=== PATIENT | male | born 1945 | race Caucasian/White ===

== ENCOUNTER 2021-01-27 21:55 | Inpatient (IN) | payer OTHER, MEDICARE ==
[~2021-01-27 21:55] MED LIST: Iopamidol-370 76% 500 ML 1 ML ONE
[2021-01-27] MEDS ORDERED: methylPREDNISolone Sod Succ/PF 125 MG/2 ML VIAL ONE (22:08)
[2021-01-27] MEDS ORDERED: Norepinephrine 8 MG/0.9% NS 250 ML ONE (22:08)
[2021-01-27] MEDS ORDERED: Vasopressin 20 UNIT, Admixture Fee 1 EACH in Sodium Chloride 0.9% 50 ML IV SCH (22:30)
[2021-01-27] MEDS ORDERED: Norepinephrine 8 MG/0.9% NS 250 ML IVPB SCH (22:30)
[2021-01-27 22:31] LABS: Actual Bicarbonate (HCO3a) 16.1 mEq/L (22-28); Analyzer IN Cardio ER; Base Excess (BEa) -12.8 mEq/L (-2.0 to +3.0); CO2 Tension 48.7 mmHg (35.0-45.0); Calcium, Ionized (arterial) 1.11 mmol/L (1.12-1.30); Carboxyhemoglobin (COHb) 0.1 gm% (0.0-3.0); Hemoglobin (Hb) 12.6 g/dL (14.0-18.0); O2 Tension (PaO2), arterial 80.6 mmHg (> 70.0); Potassium - ABG Lab 5.15 mmol/L (3.70-5.30)
[2021-01-27 22:37] LABS: pH, Arterial 7.14 (7.35-7.45)
[2021-01-27 22:38] LABS: Puncture Site RFA
[2021-01-27 22:39] LABS: ALV-art Gradient 428.925 mmHg (0-20)
[2021-01-27 22:51] LABS: Bilirubin Negative (Negative); Blood, Urine Negative (Negative); Clarity Clear (Clear); Glucose, Urine (Dipstick) Normal (Negative); Ketone, Urine Negative (Negative); Leukocyte Negative Leu/uL (Negative); Nitrite Negative (Negative); Protein, Urine (Dipstick) 100 mg/dL (Neg-Trace); RBC/HPF 0-3 HPF (0-3); Urobilinogen Normal mg/dL (Less than 2); pH, Urine 6.5 (5.0-9.0)
[2021-01-27 22:52] LABS: Bacteria/HPF None Seen HPF (None Seen); Squamous Epithelial None Seen HPF (0-3); WBC/HPF 0-3 HPF (0-3)
[2021-01-27] MEDS ORDERED: Sodium Bicarb 50 MEQ/50 ML Abboject 8.4% SYRINGE ONE (22:58)
[2021-01-27 22:59] LABS: Hemoglobin 12.7 g/dL (14.0-18.0); Mean Corpuscular HGB CONC 31.4 g/dL (32.0-36.0); Mean Corpuscular Hemoglobin 31.1 pg (27.0-31.0); Mean Corpuscular Volume 99.1 fL (78.0-98.0); Mean Platelet Volume 7.2 fL (7.4-10.4); Platelet Count 209 thou/uL (130-400); RBC Distribution Width 12.8 % (11.5-14.5); Red Blood Cell (RBC) Count 4.06 mill/uL (4.70-6.10); White Blood Cell (WBC) Count 27.1 thou/uL (4.8-10.8)
[2021-01-27 23:14] LABS: Band 10 % (5-11); Lymphocytes 18 % (21-51); MDiff Complete? YES; Monocytes 2 % (0-10); Myelocyte 1 % (0-0); Neutrophil 69 % (42-75)
[2021-01-27 23:15] LABS: ALT (SGPT) 181 U/L (8-55); AST (SGOT) 189 U/L (5-34); Albumin 3.3 g/dL (3.4-4.8); Alkaline Phosphatase 79 U/L (40-110); Anion Gap 17 mmol/L (10-20); BUN (Urea Nitrogen) 23 mg/dL (8.4-25.7); Bilirubin, Total 0.7 mg/dL (0.2-1.2); Calc. Creatinine Clearance 0 mL/min (70-130); Calcium 7.9 mg/dL (7.8-10.44); Carbon Dioxide 20 mmol/L (23-31); Chloride 110 mmol/L (98-107); Globulin 2.4 g/dL (2.4-3.5); Glucose 138 mg/dL (83-110); Potassium 4.9 mmol/L (3.5-5.1); Protein, Total 5.7 g/dL (5.8-8.1); Sodium 142 mmol/L (136-145)
[2021-01-27] MEDS ORDERED: Vancomycin 1 GM/200 ML BAG ONE (23:36)
[2021-01-27] MEDS ORDERED: Fentanyl 100 MCG/2 ML VIAL ONE ×2 (23:46)
[2021-01-27] MEDS ORDERED: Midazolam HCl 5 mg/5 ml Vial ONE (23:46)
[2021-01-27 23:54] LABS: CKMB 10.4 ng/mL (0-6.6)
[2021-01-28] MEDS ORDERED: Mannitol 12.5 GM/50 ML ONE
[2021-01-28] MEDS ORDERED: ePHEDrine Sulfate 50 MG/10 ML VIAL ONE (00:15)
[2021-01-28] MEDS ORDERED: Calcium Chloride 1 GM/10 ML Abboject SYRINGE ONE (00:15)
[2021-01-28] MEDS ORDERED: Rocuronium Bromide 10 MG/ML (10ML VIAL) ONE (00:15)
[2021-01-28] MEDS ORDERED: PROPOFOL 200 MG/20 ML VIAL ONE (00:15)
[2021-01-28] MEDS ORDERED: PHENYLEPHRINE-NS 100 MCG/ML 10 ML SYRINGE ONE ×2 (00:15→01:51)
[2021-01-28] MEDS ORDERED: Heparin 5,000 UNITS/ML VIAL ONE (00:16)
[2021-01-28] MEDS ORDERED: Heparin 10,000 UNITS/ 10 ML VIAL ONE (00:16)
[2021-01-28] MEDS ORDERED: Norepinephrine 4 MG/4 ML VIAL ONE (00:16)
[2021-01-28] MEDS ORDERED: Albumin 5% 500 ML ONE (01:06)
[2021-01-28] MEDS ORDERED: Ondansetron PF 4 MG/2 ML Vial IVP PRN (03:33)
[2021-01-28] MEDS ORDERED: Insulin Regular 300 UNITS/3 ML VIAL SC PRN (03:33)
[2021-01-28] MEDS ORDERED: Fentanyl CADD 100 ML ONE ×2 (03:47→21:18)
[2021-01-28] MEDS ORDERED: Vecuronium 10 MG VIAL ONE (03:53)
[2021-01-28] MEDS ORDERED: Propofol 1,000 MG/100 ML VIAL IV ONE (04:08)
[2021-01-28] MEDS: Sodium Chloride 0.9% 1,000 ML IV SCH ×4 (04:10→23:53)
[2021-01-28] MEDS ORDERED: Sodium Bicarb 50 MEQ/50 ML Abboject 8.4% SYRINGE ONE (04:18)
[2021-01-28 04:20] LABS: Actual Bicarbonate (HCO3a) 15.7 mEq/L (22-28); CO2 Tension 31.4 mmHg (35.0-45.0); Calcium, Ionized (arterial) 1.06 mmol/L (1.12-1.30); Carboxyhemoglobin (COHb) 0.7 gm% (0.0-3.0); Hemoglobin (Hb) 16.3 g/dL (14.0-18.0); Potassium - ABG Lab 5.49 mmol/L (3.70-5.30); pH, Arterial 7.32 (7.35-7.45)
[2021-01-28 04:21] LABS: Puncture Site Arterial Line
[2021-01-28] MEDS ORDERED: Nitroglycerin 50 MG/250 ML BOT 250 ML ONE (04:27)
[2021-01-28 04:29] LABS: INR-International Normal Ratio 1.6; PTT 48.8 sec (22.9-36.1); Prothrombin Time 19.8 sec (12.0-14.7)
[2021-01-28 04:35] LABS: Anion Gap 17 mmol/L (10-20); BUN (Urea Nitrogen) 23 mg/dL (8.4-25.7); Calc. Creatinine Clearance 58 mL/min (70-130); Calcium 7.8 mg/dL (7.8-10.44); Carbon Dioxide 15 mmol/L (23-31); Chloride 115 mmol/L (98-107); Glucose 116 mg/dL (83-110); Potassium 5.7 mmol/L (3.5-5.1); Sodium 141 mmol/L (136-145)
[2021-01-28 04:41] LABS: Lactic Acid 4.7 mmol/L (0.5-2.2)
[2021-01-28] MEDS ORDERED: Morphine 4 MG/ML VIAL SLOW IVP PRN (04:47)
[2021-01-28] MEDS ORDERED: Propofol BOLUS 1,000 MG/100 ML VIAL IV PRN (05:00)
[2021-01-28] MEDS ORDERED: Morphine 2 MG/ML VIAL SLOW IVP PRN (05:00)
[2021-01-28] MEDS ORDERED: Fentanyl BOLUS 250 ML IVPB PRN (05:00)
[2021-01-28] MEDS ORDERED: DISCONTINUE PREVIOUS NARCOTIC PAIN MEDICATIONS AND BENZODIAZEPINES FS SCH (05:00)
[2021-01-28] MEDS ORDERED: Nitroglycerin 50 MG/250 ML BOT 250 ML IVPB SCH (05:00)
[2021-01-28] MEDS: Vecuronium 10 MG VIAL IVP PRN ×4 (07:28→23:43)
[2021-01-28 08:37] LABS: Hemoglobin 17.4 g/dL (14.0-18.0)
[2021-01-28] MEDS: Aspirin Chewable 81 MG TAB PO SCH (08:54)
[2021-01-28 11:22] LABS: Base Excess (BEa) -8.1 mEq/L (-2.0 to +3.0); Calcium, Ionized (arterial) 1.01 mmol/L (1.12-1.30); Carboxyhemoglobin (COHb) 0.7 gm% (0.0-3.0); Hemoglobin (Hb) 16.6 g/dL (14.0-18.0); O2 Tension (PaO2), arterial 94.5 mmHg (> 70.0); Potassium - ABG Lab 5.52 mmol/L (3.70-5.30); pH, Arterial 7.34 (7.35-7.45)
[2021-01-28 11:23] LABS: Puncture Site Arterial Line
[2021-01-28] MEDS: Propofol 1,000 MG/100 ML VIAL IV PRN ×2 (14:27→19:40)
[2021-01-28] MEDS: Norepinephrine 8 MG/0.9% NS 250 ML IVPB PRN (15:01)
[2021-01-28 15:06] LABS: Actual Bicarbonate (HCO3a) 17.4 mEq/L (22-28); Analyzer IN Cardio OR; Base Excess (BEa) -11.6 mEq/L (-2.0 to +3.0); Calcium, Ionized (arterial) 1.29 mmol/L (1.12-1.30); Carboxyhemoglobin (COHb) 0.7 gm% (0.0-3.0); Hemoglobin (Hb) 13.3 g/dL (14.0-18.0); O2 Tension (PaO2), arterial 308.5 mmHg (> 70.0); Potassium - ABG Lab 5.05 mmol/L (3.70-5.30)
[2021-01-28 15:06] LABS: Actual Bicarbonate (HCO3a) 14.4 mEq/L (22-28); Base Excess (BEa) -13.2 mEq/L (-2.0 to +3.0); CO2 Tension 39.3 mmHg (35.0-45.0); Hemoglobin (Hb) 11.9 g/dL (14.0-18.0); O2 Tension (PaO2), arterial 355.3 mmHg (> 70.0)
[2021-01-28 15:07] LABS: Actual Bicarbonate (HCO3a) 13.5 mEq/L (22-28); Analyzer IN Cardio OR; Base Excess (BEa) -12.9 mEq/L (-2.0 to +3.0); Calcium, Ionized (arterial) 0.75 mmol/L (1.12-1.30); Carboxyhemoglobin (COHb) 0.4 gm% (0.0-3.0); O2 Tension (PaO2), arterial 455.7 mmHg (> 70.0); Potassium - ABG Lab 4.76 mmol/L (3.70-5.30)
[2021-01-28 15:07] LABS: Analyzer IN Cardio OR; Calcium, Ionized (arterial) 0.77 mmol/L (1.12-1.30); Carboxyhemoglobin (COHb) 0.6 gm% (0.0-3.0); Potassium - ABG Lab 5.21 mmol/L (3.70-5.30)
[2021-01-28 15:09] LABS: Puncture Site Arterial Line; pH, Arterial 7.14 (7.35-7.45)
[2021-01-28 15:10] LABS: Puncture Site Arterial Line; pH, Arterial 7.18 (7.35-7.45)
[2021-01-28 15:11] LABS: Puncture Site Arterial Line; pH, Arterial 7.23 (7.35-7.45)
[2021-01-28 16:39] LABS: Hemoglobin 12.4 g/dL (14.0-18.0)
[2021-01-28] MEDS: Albumin 25% 25 GM/100 ML BOT IVPB SCH (18:23)
[2021-01-28 20:12] LABS: Hemoglobin 11.4 g/dL (14.0-18.0)
[2021-01-28] MEDS: Fentanyl CADD 100 ML IV SCH (22:38)
[2021-01-29] MEDS: Albumin 25% 25 GM/100 ML BOT IVPB SCH ×4 (00:29→17:54)
[2021-01-29 00:32] LABS: Hemoglobin 11.2 g/dL (14.0-18.0)
[2021-01-29] MEDS: Propofol 1,000 MG/100 ML VIAL IV PRN ×4 (02:26→20:34)
[2021-01-29] MEDS: Vecuronium 10 MG VIAL IVP PRN ×2 (03:20→08:11)
[2021-01-29 04:25] LABS: Hemoglobin 10.2 g/dL (14.0-18.0)
[2021-01-29] MEDS: Sodium Chloride 0.9% 1,000 ML IV SCH ×3 (05:46→20:19)
[2021-01-29 08:03] LABS: Anion Gap 18 mmol/L (10-20); BUN (Urea Nitrogen) 40 mg/dL (8.4-25.7); Calc. Creatinine Clearance 33 mL/min (70-130); Calcium 7.1 mg/dL (7.8-10.44); Carbon Dioxide 16 mmol/L (23-31); Chloride 115 mmol/L (98-107); Glucose 106 mg/dL (83-110); Potassium 4.5 mmol/L (3.5-5.1); Sodium 144 mmol/L (136-145)
[2021-01-29] MEDS: Aspirin Chewable 81 MG TAB PO SCH (08:11)
[2021-01-29 08:56] LABS: Base Excess (BEa) -5.4 mEq/L (-2.0 to +3.0); Calcium, Ionized (arterial) 0.95 mmol/L (1.12-1.30); Carboxyhemoglobin (COHb) 0.3 gm% (0.0-3.0); Hemoglobin (Hb) 10.2 g/dL (14.0-18.0); O2 Tension (PaO2), arterial 72.3 mmHg (> 70.0); Potassium - ABG Lab 4.37 mmol/L (3.70-5.30); pH, Arterial 7.47 (7.35-7.45)
[2021-01-29 08:57] LABS: Puncture Site Arterial Line
[2021-01-29] MEDS ORDERED: Fentanyl 100 MCG/2 ML VIAL ONE (09:16)
[2021-01-29 09:35] LABS: Band 33 % (5-11); Hemoglobin 10.2 g/dL (14.0-18.0); Lymphocytes 5 % (21-51); MDiff Complete? YES; Mean Corpuscular HGB CONC 35.3 g/dL (32.0-36.0); Mean Corpuscular Hemoglobin 32.9 pg (27.0-31.0); Mean Corpuscular Volume 93.1 fL (78.0-98.0); Mean Platelet Volume 8.6 fL (7.4-10.4); Monocytes 2 % (0-10); Neutrophil 60 % (42-75); Platelet Count 53 thou/uL (130-400); Platelet Morphology Comment Appears Decreased; Polychromasia SLIGHT = 2-3 cells (100X) (0-2/hpf); Red Blood Cell (RBC) Count 3.12 mill/uL (4.70-6.10); White Blood Cell (WBC) Count 7.1 thou/uL (4.8-10.8)
[2021-01-29 09:51] LABS: INR-International Normal Ratio 1.5; Prothrombin Time 18.7 sec (12.0-14.7)
[2021-01-29] MEDS ORDERED: Rocuronium Bromide 10 MG/ML (10ML VIAL) ONE (09:51)
[2021-01-29] MEDS ORDERED: PHENYLEPHRINE-NS 100 MCG/ML 10 ML SYRINGE ONE (09:51)
[2021-01-29] MEDS ORDERED: Esmolol 100 MG/10 ML VIAL ONE (09:51)
[2021-01-29] MEDS ORDERED: EPINEPHrine 1 MG/10 ML Abboject SYRINGE ONE (09:51)
[2021-01-29] MEDS ORDERED: Calcium Chloride 1 GM/10 ML Abboject SYRINGE ONE (09:51)
[2021-01-29 09:52] LABS: PTT 37.1 sec (22.9-36.1)
[2021-01-29] MEDS ORDERED: Thrombin 5000 UNITS/5 ML VIAL ONE (09:59)
[2021-01-29 10:41] LABS: INR-International Normal Ratio 1.6; PTT 37.9 sec (22.9-36.1); Prothrombin Time 18.9 sec (12.0-14.7)
[2021-01-29] MEDS ORDERED: Sodium Bicarb 50 MEQ/50 ML Abboject 8.4% SYRINGE ONE (11:22)
[2021-01-29] MEDS ORDERED: Heparin 10,000 UNITS/ 10 ML VIAL ONE (11:41)
[2021-01-29] MEDS ORDERED: Sodium Chloride 0.9% 30 ML ONE (11:42)
[2021-01-29] MEDS: Acetaminophen 325 MG TAB PO PRN ×2 (17:22→21:32)
[2021-01-29] MEDS ORDERED: Fentanyl CADD 100 ML ONE (19:20)
[2021-01-29] MEDS: Fentanyl CADD 100 ML IV SCH (19:24)
[2021-01-29 21:15] LABS: Hemoglobin 10.7 g/dL (14.0-18.0)
[2021-01-29] MEDS ORDERED: VANCOMYCIN 2 GRAM/400 ML BAG 2 GM in Premix Bag 1 BAG IVPB SCH (23:59)
[2021-01-30] MEDS: Propofol 1,000 MG/100 ML VIAL IV PRN ×7 (00:43→23:31)
[2021-01-30] MEDS: Sodium Chloride 0.9% 1,000 ML IV SCH ×2 (02:21→22:31)
[2021-01-30 05:48] LABS: Anion Gap 17 mmol/L (10-20); BUN (Urea Nitrogen) 49 mg/dL (8.4-25.7); Calc. Creatinine Clearance 36 mL/min (70-130); Calcium 7.3 mg/dL (7.8-10.44); Carbon Dioxide 17 mmol/L (23-31); Chloride 116 mmol/L (98-107); Glucose 96 mg/dL (83-110); Sodium 146 mmol/L (136-145)
[2021-01-30 05:51] LABS: Hemoglobin 10.1 g/dL (14.0-18.0); Mean Corpuscular HGB CONC 33.2 g/dL (32.0-36.0); Mean Corpuscular Hemoglobin 30.3 pg (27.0-31.0); Mean Corpuscular Volume 91.3 fL (78.0-98.0); Mean Platelet Volume 8.6 fL (7.4-10.4); Platelet Count 74 thou/uL (130-400); RBC Distribution Width 14.5 % (11.5-14.5); Red Blood Cell (RBC) Count 3.32 mill/uL (4.70-6.10); White Blood Cell (WBC) Count 7.6 thou/uL (4.8-10.8)
[2021-01-30 06:03] LABS: Band 40 % (5-11); Hypochromia SLIGHT = 6-15 cells (100X) (0-5/hpf); Lymphocytes 4 % (21-51); MDiff Complete? YES; Monocytes 4 % (0-10); Neutrophil 52 % (42-75); Platelet Morphology Comment Appears Decreased
[2021-01-30 07:03] LABS: Actual Bicarbonate (HCO3a) 16.5 mEq/L (22-28); Base Excess (BEa) -5.7 mEq/L (-2.0 to +3.0); Calcium, Ionized (arterial) 0.97 mmol/L (1.12-1.30); Carboxyhemoglobin (COHb) 0.2 gm% (0.0-3.0); Hemoglobin (Hb) 12.2 g/dL (14.0-18.0); O2 Tension (PaO2), arterial 68.1 mmHg (> 70.0); Potassium - ABG Lab 3.86 mmol/L (3.70-5.30); pH, Arterial 7.46 (7.35-7.45)
[2021-01-30 07:34] LABS: CO2 Tension 23.8 mmHg (35.0-45.0); Puncture Site Arterial Line
[2021-01-30] MEDS: Acetaminophen 325 MG TAB PO PRN (09:00)
[2021-01-30] MEDS: Aspirin Chewable 81 MG TAB PO SCH (09:16)
[2021-01-30] MEDS ORDERED: Metoprolol Tartrate 5 MG/5 ML VIAL ONE (09:48)
[2021-01-30] MEDS ORDERED: Metoprolol Tartrate 5 MG/5 ML VIAL IVP SCH (10:00)
[2021-01-30] MEDS: Cefepime 2 GM in Sodium Chloride 0.9% 100 ML IVPB SCH ×2 (10:45→22:08)
[2021-01-30] MEDS: Sodium Chloride 0.45% 1,000 ML IV SCH ×2 (10:57→22:15)
[2021-01-30] MEDS ORDERED: Fentanyl CADD 100 ML ONE (12:48)
[2021-01-30] MEDS: Fentanyl CADD 100 ML IV SCH (12:53)
[2021-01-30 14:38] LABS: Actual Bicarbonate (HCO3a) 20.9 mEq/L (22-28); Analyzer IN Cardio OR; Base Excess (BEa) -4.7 mEq/L (-2.0 to +3.0); CO2 Tension 40.8 mmHg (35.0-45.0); Calcium, Ionized (arterial) 0.95 mmol/L (1.12-1.30); Carboxyhemoglobin (COHb) 0.3 gm% (0.0-3.0); Hemoglobin (Hb) 10.3 g/dL (14.0-18.0); O2 Tension (PaO2), arterial 166.1 mmHg (> 70.0); Potassium - ABG Lab 4.44 mmol/L (3.70-5.30); pH, Arterial 7.33 (7.35-7.45)
[2021-01-30 14:38] LABS: Actual Bicarbonate (HCO3a) 19.5 mEq/L (22-28); Base Excess (BEa) -8.2 mEq/L (-2.0 to +3.0); CO2 Tension 49.3 mmHg (35.0-45.0); O2 Tension (PaO2), arterial 131.4 mmHg (> 70.0)
[2021-01-30 14:39] LABS: Analyzer IN Cardio OR; Calcium, Ionized (arterial) 1.05 mmol/L (1.12-1.30); Carboxyhemoglobin (COHb) 0.1 gm% (0.0-3.0); Hemoglobin (Hb) 11.7 g/dL (14.0-18.0); Potassium - ABG Lab 4.79 mmol/L (3.70-5.30)
[2021-01-30 14:39] LABS: Puncture Site Arterial Line
[2021-01-30 14:40] LABS: Puncture Site Arterial Line; pH, Arterial 7.22 (7.35-7.45)
[2021-01-30 23:24] LABS: Vancomycin, Random 14.8 ug/mL (See Comment)
[2021-01-30] MEDS ORDERED: Vancomycin 1 GM in Premix Bag 1 BAG IVPB SCH (23:59)
[2021-01-31] MEDS ORDERED: Fentanyl CADD 100 ML ONE ×2 (02:44→15:42)
[2021-01-31] MEDS: Fentanyl CADD 100 ML IV SCH ×2 (02:46→15:47)
[2021-01-31] MEDS: Propofol 1,000 MG/100 ML VIAL IV PRN ×3 (03:01→11:30)
[2021-01-31] MEDS ORDERED: Sodium Chloride 0.45% 1,000 ML IV SCH (09:11)
[2021-01-31] MEDS ORDERED: Lactated Ringer's 1,000 ML IV SCH ×2 (09:15→12:00)
[2021-01-31] MEDS: Cefepime 2 GM in Sodium Chloride 0.9% 100 ML IVPB SCH ×2 (10:09→21:09)
[2021-01-31 10:17] LABS: #Lymphocytes 0.5 thou/uL (1.20-3.40); #Monocytes 0.8 thou/uL (0.11-0.59); #Neutrophils 11.3 thou/uL (1.40-6.50); %Basophils 0.1 % (0.0-1.0); %Eosinophils 0.3 % (0.0-10.0); %Lymphocytes 3.7 % (21.0-51.0); %Monocytes 6.4 % (0.0-10.0); %Neutrophils 89.5 % (42.0-75.0); Hemoglobin 9.1 g/dL (14.0-18.0); Mean Corpuscular HGB CONC 33.4 g/dL (32.0-36.0); Mean Corpuscular Hemoglobin 31.6 pg (27.0-31.0); Mean Corpuscular Volume 94.6 fL (78.0-98.0); Mean Platelet Volume 8.3 fL (7.4-10.4); Platelet Count 83 thou/uL (130-400); RBC Distribution Width 14.2 % (11.5-14.5); Red Blood Cell (RBC) Count 2.86 mill/uL (4.70-6.10); White Blood Cell (WBC) Count 12.6 thou/uL (4.8-10.8)
[2021-01-31 10:37] LABS: Anion Gap 17 mmol/L (10-20); BUN (Urea Nitrogen) 62 mg/dL (8.4-25.7); Calc. Creatinine Clearance 31 mL/min (70-130); Calcium 7.4 mg/dL (7.8-10.44); Carbon Dioxide 18 mmol/L (23-31); Chloride 115 mmol/L (98-107); Glucose 84 mg/dL (83-110); Potassium 4.6 mmol/L (3.5-5.1); Sodium 145 mmol/L (136-145)
[2021-01-31] MEDS ORDERED: Dextrose 50% Abboject 50 ML SYRINGE ONE (10:45)
[2021-01-31] MEDS: Lorazepam 2 MG/ML VIAL SLOW IVP PRN ×3 (11:25→16:32)
[2021-01-31] MEDS ORDERED: Magnesium Sulfate 2 GM in Sodium Chloride 0.9% 100 ML IVPB PRN (11:57)
[2021-01-31] MEDS ORDERED: Potassium Phosphate 15 MMOL in Sodium Chloride 0.9% 250 ML 250 ML IVPB PRN (11:57)
[2021-01-31 12:22] LABS: Magnesium 1.8 mg/dL (1.6-2.6); Phosphorus 5.7 mg/dL (2.3-4.7)
[2021-01-31] MEDS ORDERED: Magnesium 2 GM/50 ML 2 GM in Premix Bag 1 BAG IVPB PRN (12:46)
[2021-01-31] MEDS: Aspirin Chewable 81 MG TAB PO SCH (13:07)
[2021-01-31] MEDS: Metoclopramide HCl 10 MG/2 ML VIAL IVP SCH ×2 (13:12→21:10)
[2021-01-31] MEDS ORDERED: Lactated Ringer's 500 ML IV SCH (17:45)
[2021-01-31] MEDS: Lactated Ringer's 1,000 ML IV SCH (19:55)
[2021-01-31] MEDS: Norepinephrine 8 MG/0.9% NS 250 ML IVPB PRN (23:20)
[2021-01-31 23:38] LABS: Vancomycin, Random 18.3 ug/mL (See Comment)
[2021-02-01] MEDS ORDERED: Vancomycin HCl 750 MG in Sodium Chloride 0.9% 250 ML 250 ML IVPB SCH (01:00)
[2021-02-01] MEDS: Lactated Ringer's 1,000 ML IV SCH ×2 (02:47→07:18)
[2021-02-01] MEDS ORDERED: Fentanyl CADD 100 ML ONE ×2 (04:45→17:06)
[2021-02-01] MEDS: Fentanyl CADD 100 ML IV SCH ×2 (04:53→17:09)
[2021-02-01 05:09] LABS: Hemoglobin 7.9 g/dL (14.0-18.0); Mean Corpuscular HGB CONC 33.2 g/dL (32.0-36.0); Mean Corpuscular Hemoglobin 31.1 pg (27.0-31.0); Mean Corpuscular Volume 93.8 fL (78.0-98.0); Mean Platelet Volume 8.7 fL (7.4-10.4); Platelet Count 82 thou/uL (130-400); RBC Distribution Width 14.1 % (11.5-14.5); Red Blood Cell (RBC) Count 2.52 mill/uL (4.70-6.10); White Blood Cell (WBC) Count 10.9 thou/uL (4.8-10.8)
[2021-02-01 05:24] LABS: Anion Gap 16 mmol/L (10-20); BUN (Urea Nitrogen) 73 mg/dL (8.4-25.7); Calc. Creatinine Clearance 27 mL/min (70-130); Calcium 7.5 mg/dL (7.8-10.44); Carbon Dioxide 17 mmol/L (23-31); Chloride 115 mmol/L (98-107); Glucose 90 mg/dL (83-110); Magnesium 1.8 mg/dL (1.6-2.6); Potassium 4.7 mmol/L (3.5-5.1); Sodium 143 mmol/L (136-145)
[2021-02-01] MEDS: Metoclopramide HCl 10 MG/2 ML VIAL IVP SCH ×3 (05:34→21:10)
[2021-02-01 05:45] LABS: Band 19 % (5-11); Hypochromia SLIGHT = 6-15 cells (100X) (0-5/hpf); Lymphocytes 1 % (21-51); MDiff Complete? YES; Monocytes 11 % (0-10); Neutrophil 69 % (42-75); Platelet Morphology Comment Appears Decreased
[2021-02-01 07:17] LABS: Actual Bicarbonate (HCO3a) 16.4 mEq/L (22-28); Base Excess (BEa) -8.7 mEq/L (-2.0 to +3.0); CO2 Tension 32.1 mmHg (35.0-45.0); Calcium, Ionized (arterial) 1.02 mmol/L (1.12-1.30); Carboxyhemoglobin (COHb) 0.2 gm% (0.0-3.0); Hemoglobin (Hb) 9.6 g/dL (14.0-18.0); O2 Tension (PaO2), arterial 91.1 mmHg (> 70.0); Potassium - ABG Lab 4.51 mmol/L (3.70-5.30); pH, Arterial 7.33 (7.35-7.45)
[2021-02-01] MEDS: Aspirin Chewable 81 MG TAB PO SCH (07:18)
[2021-02-01 07:30] LABS: Puncture Site Arterial Line
[2021-02-01 07:31] LABS: ALV-art Gradient 225.275 mmHg (0-20)
[2021-02-01] MEDS: Cefepime 2 GM in Sodium Chloride 0.9% 100 ML IVPB SCH ×2 (09:18→21:10)
[2021-02-01 12:24] LABS: Bilirubin Negative (Negative); Blood, Urine 3+ (Negative); Clarity Turbid (Clear); Glucose, Urine (Dipstick) Normal (Negative); Ketone, Urine Negative (Negative); Leukocyte 25 Leu/uL (Negative); Nitrite Negative (Negative); Protein, Urine (Dipstick) 100 mg/dL (Neg-Trace); RBC/HPF Greater than 50 HPF (0-3); Specific Gravity, Urine 1.019 (1.002-1.036); Urobilinogen Normal mg/dL (Less than 2); pH, Urine 5.5 (5.0-9.0)
[2021-02-01 12:34] LABS: Bacteria/HPF 1+ HPF (None Seen); Squamous Epithelial 0-3 HPF (0-3)
[2021-02-01 12:44] LABS: Creatinine, Urine 105.69 mg/dL (63-166)
[2021-02-01] MEDS: Furosemide 100 MG/10 ML VIAL SLOW IVP SCH (12:45)
[2021-02-01] MEDS: Lorazepam 2 MG/ML VIAL SLOW IVP PRN ×3 (13:22→19:19)
[2021-02-01] MEDS: Dexmedetomidine 1,000 MCG in Sodium Chloride 0.9% 250 ML 240 ML IVPB SCH ×2 (15:41→23:36)
[2021-02-01 17:07] LABS: Albumin 2.5 g/dL (3.4-4.8); Anion Gap 14 mmol/L (10-20); BUN (Urea Nitrogen) 78 mg/dL (8.4-25.7); BUN/Creatinine Ratio 16.99; Calc. Creatinine Clearance 26 mL/min (70-130); Calcium 7.7 mg/dL (7.8-10.44); Carbon Dioxide 18 mmol/L (23-31); Chloride 114 mmol/L (98-107); Glucose 127 mg/dL (83-110); Phosphorus 5.9 mg/dL (2.3-4.7); Potassium 4.1 mmol/L (3.5-5.1); Sodium 142 mmol/L (136-145)
[2021-02-01] MEDS ORDERED: Calcium Gluconate 13.8 MEQ in Sodium Chloride 0.9% 250 ML 250 ML IVPB SCH (17:31)
[2021-02-01] MEDS: Albumin 25% 25 GM/100 ML BOT IVPB SCH (19:48)
[2021-02-01] MEDS: Sodium Bicarbonate 150 MEQ in Dextrose 5% in Water 1,000 ML IV SCH ×2 (22:45→23:36)
[2021-02-02 00:38] LABS: Vancomycin, Random 19.8 ug/mL (See Comment)
[2021-02-02] MEDS ORDERED: Vancomycin HCl 750 MG in Sodium Chloride 0.9% 250 ML 250 ML IVPB SCH (01:30)
[2021-02-02] MEDS: Albumin 25% 25 GM/100 ML BOT IVPB SCH ×4 (01:30→17:00)
[2021-02-02] MEDS: Lorazepam 2 MG/ML VIAL SLOW IVP PRN ×3 (04:13→11:49)
[2021-02-02] MEDS ORDERED: Fentanyl CADD 100 ML ONE ×2 (04:18→20:30)
[2021-02-02] MEDS: Fentanyl CADD 100 ML IV SCH ×2 (04:28→21:06)
[2021-02-02 04:55] LABS: Anion Gap 17 mmol/L (10-20); BUN (Urea Nitrogen) 85 mg/dL (8.4-25.7); Calc. Creatinine Clearance 24 mL/min (70-130); Calcium 7.8 mg/dL (7.8-10.44); Carbon Dioxide 20 mmol/L (23-31); Chloride 111 mmol/L (98-107); Glucose 104 mg/dL (83-110); Magnesium 1.9 mg/dL (1.6-2.6); Phosphorus 5.7 mg/dL (2.3-4.7); Potassium 4.1 mmol/L (3.5-5.1); Sodium 144 mmol/L (136-145)
[2021-02-02] MEDS: Furosemide 100 MG/10 ML VIAL SLOW IVP SCH ×3 (05:25→21:27)
[2021-02-02] MEDS: Metoclopramide HCl 10 MG/2 ML VIAL IVP SCH ×3 (05:26→21:27)
[2021-02-02 06:38] LABS: Actual Bicarbonate (HCO3a) 18.5 mEq/L (22-28); Base Excess (BEa) -5.7 mEq/L (-2.0 to +3.0); CO2 Tension 31.7 mmHg (35.0-45.0); Calcium, Ionized (arterial) 1.03 mmol/L (1.12-1.30); Carboxyhemoglobin (COHb) 0.5 gm% (0.0-3.0); O2 Tension (PaO2), arterial 77.5 mmHg (> 70.0); pH, Arterial 7.39 (7.35-7.45)
[2021-02-02] MEDS: Dexmedetomidine 1,000 MCG in Sodium Chloride 0.9% 250 ML 240 ML IVPB SCH ×2 (06:39→16:57)
[2021-02-02 06:52] LABS: ALV-art Gradient 239.375 mmHg (0-20); Puncture Site Arterial Line
[2021-02-02] MEDS: Aspirin Chewable 81 MG TAB PO SCH (07:41)
[2021-02-02] MEDS: Sodium Bicarbonate 150 MEQ in Dextrose 5% in Water 1,000 ML IV SCH ×2 (09:57→21:06)
[2021-02-02] MEDS ORDERED: Famotidine/PF 20 mg/2ml Vial SLOW IVP SCH (10:00)
[2021-02-02] MEDS: Cefepime 1 GM in Sodium Chloride 0.9% 100 ML IVPB SCH (21:05)
[2021-02-03 00:48] LABS: Vancomycin, Random 23.5 ug/mL (See Comment)
[2021-02-03] MEDS: Dexmedetomidine 1,000 MCG in Sodium Chloride 0.9% 250 ML 240 ML IVPB SCH ×3 (03:36→18:52)
[2021-02-03 06:12] LABS: Anion Gap 19 mmol/L (10-20); BUN (Urea Nitrogen) 98 mg/dL (8.4-25.7); Calc. Creatinine Clearance 22 mL/min (70-130); Calcium 8.2 mg/dL (7.8-10.44); Carbon Dioxide 23 mmol/L (23-31); Chloride 108 mmol/L (98-107); Glucose 127 mg/dL (83-110); Magnesium 1.9 mg/dL (1.6-2.6); Potassium 3.7 mmol/L (3.5-5.1); Sodium 146 mmol/L (136-145)
[2021-02-03] MEDS: Furosemide 100 MG/10 ML VIAL SLOW IVP SCH ×3 (06:22→21:48)
[2021-02-03] MEDS: Sodium Bicarbonate 150 MEQ in Dextrose 5% in Water 1,000 ML IV SCH (06:22)
[2021-02-03] MEDS: Metoclopramide HCl 10 MG/2 ML VIAL IVP SCH (06:23)
[2021-02-03 07:04] LABS: Actual Bicarbonate (HCO3a) 23.6 mEq/L (22-28); Base Excess (BEa) -0.5 mEq/L (-2.0 to +3.0); CO2 Tension 36.4 mmHg (35.0-45.0); Calcium, Ionized (arterial) 1.03 mmol/L (1.12-1.30); Carboxyhemoglobin (COHb) 0.3 gm% (0.0-3.0); Hemoglobin (Hb) 9.8 g/dL (14.0-18.0); O2 Tension (PaO2), arterial 68.6 mmHg (> 70.0); Potassium - ABG Lab 3.58 mmol/L (3.70-5.30); pH, Arterial 7.43 (7.35-7.45)
[2021-02-03 07:05] LABS: Puncture Site RRA
[2021-02-03 07:35] LABS: #Eosinphils 0.2 thou/uL (0.0-0.7); #Lymphocytes 0.3 thou/uL (1.20-3.40); #Monocytes 0.8 thou/uL (0.11-0.59); #Neutrophils 9.7 thou/uL (1.40-6.50); %Basophils 0.4 % (0.0-1.0); %Eosinophils 1.4 % (0.0-10.0); %Monocytes 7.2 % (0.0-10.0); %Neutrophils 88.1 % (42.0-75.0); Hemoglobin 9.3 g/dL (14.0-18.0); Mean Corpuscular HGB CONC 33.4 g/dL (32.0-36.0); Mean Corpuscular Hemoglobin 31.3 pg (27.0-31.0); Mean Corpuscular Volume 93.8 fL (78.0-98.0); Mean Platelet Volume 8.4 fL (7.4-10.4); Platelet Count 115 thou/uL (130-400); RBC Distribution Width 13.8 % (11.5-14.5); Red Blood Cell (RBC) Count 2.96 mill/uL (4.70-6.10)
[2021-02-03 07:50] LABS: Phosphorus 5.1 mg/dL (2.3-4.7)
[2021-02-03] MEDS: Famotidine/PF 20 mg/2ml Vial SLOW IVP SCH (08:56)
[2021-02-03] MEDS: Aspirin Chewable 81 MG TAB PO SCH (08:57)
[2021-02-03] MEDS ORDERED: Sodium Bicarbonate 50 MEQ in Dextrose 5% in Water 1,000 ML IV SCH (12:45)
[2021-02-03] MEDS ORDERED: Metolazone 2.5 MG TAB PER TUBE SCH (12:45)
[2021-02-03] MEDS ORDERED: Fentanyl CADD 100 ML ONE (12:56)
[2021-02-03 15:17] LABS: Anion Gap 20 mmol/L (10-20); BUN (Urea Nitrogen) 100 mg/dL (8.4-25.7); BUN/Creatinine Ratio 18.87; Calc. Creatinine Clearance 22 mL/min (70-130); Calcium 8.2 mg/dL (7.8-10.44); Carbon Dioxide 24 mmol/L (23-31); Chloride 106 mmol/L (98-107); Glucose 101 mg/dL (83-110); Potassium 3.5 mmol/L (3.5-5.1); Sodium 146 mmol/L (136-145)
[2021-02-03] MEDS: Cefepime 1 GM in Sodium Chloride 0.9% 100 ML IVPB SCH (21:49)
[2021-02-04] MEDS: Dexmedetomidine 1,000 MCG in Sodium Chloride 0.9% 250 ML 240 ML IVPB SCH ×2 (03:00→09:59)
[2021-02-04 04:57] LABS: Phosphorus 5.7 mg/dL (2.3-4.7)
[2021-02-04] MEDS: Furosemide 100 MG/10 ML VIAL SLOW IVP SCH ×3 (06:30→21:40)
[2021-02-04 06:45] LABS: Hemoglobin 9.8 g/dL (14.0-18.0); Mean Corpuscular HGB CONC 32.5 g/dL (32.0-36.0); Mean Corpuscular Hemoglobin 30.4 pg (27.0-31.0); Mean Corpuscular Volume 93.5 fL (78.0-98.0); Mean Platelet Volume 8.7 fL (7.4-10.4); Platelet Count 156 thou/uL (130-400); RBC Distribution Width 13.9 % (11.5-14.5); Red Blood Cell (RBC) Count 3.22 mill/uL (4.70-6.10); White Blood Cell (WBC) Count 15.2 thou/uL (4.8-10.8)
[2021-02-04 07:05] LABS: ALT (SGPT) 76 U/L (8-55); AST (SGOT) 74 U/L (5-34); Albumin 2.9 g/dL (3.4-4.8); Alkaline Phosphatase 89 U/L (40-110); Anion Gap 20 mmol/L (10-20); BUN (Urea Nitrogen) 110 mg/dL (8.4-25.7); Bilirubin, Total 7.6 mg/dL (0.2-1.2); CK (CPK) 177 U/L (30-200); Calc. Creatinine Clearance 21 mL/min (70-130); Calcium 8.7 mg/dL (7.8-10.44); Carbon Dioxide 25 mmol/L (23-31); Chloride 104 mmol/L (98-107); Globulin 2.4 g/dL (2.4-3.5); Glucose 101 mg/dL (83-110); Potassium 3.7 mmol/L (3.5-5.1); Protein, Total 5.3 g/dL (5.8-8.1); Sodium 145 mmol/L (136-145)
[2021-02-04] MEDS: Aspirin Chewable 81 MG TAB PO SCH (08:58)
[2021-02-04] MEDS: Famotidine/PF 20 mg/2ml Vial SLOW IVP SCH (08:58)
[2021-02-04 09:08] LABS: HBSAB Concentration Less than 8.00 mIU/mL; HBSAg Index 0.17 S/CO (0-0.99); Hep B Core Total Ab Non-Reactive (NonReactive); Hep B Core Total Index 0.05 S/CO (0-0.79); Hep B Surf AB Non-Reactive (NonReactive); Hep B Surf Ag Non-Reactive S/CO (NonReactive); Hep C IgG Ab Non-Reactive (NonReactive); Hep C Index 0.04 S/CO (0-0.79)
[2021-02-04] MEDS ORDERED: Heparin 10,000 UNITS/ 10 ML VIAL ONE (09:49)
[2021-02-04] MEDS ORDERED: Fentanyl CADD 100 ML ONE (10:30)
[2021-02-04] MEDS ORDERED: Vancomycin HCl 1.5 GM in Sodium Chloride 0.9% 250 ML 300 ML IVPB SCH (14:30)
[2021-02-04] MEDS ORDERED: Vancomycin HCl 1.25 GM in Sodium Chloride 0.9% 250 ML 250 ML IVPB SCH (14:30)
[2021-02-04] MEDS ORDERED: Vancomycin HCl 750 MG in Sodium Chloride 0.9% 250 ML 250 ML IVPB SCH (14:30)
[2021-02-04] MEDS ORDERED: Vancomycin 1 GM in Premix Bag 1 BAG IVPB SCH (14:30)
[2021-02-04] MEDS ORDERED: HOLD VANCOMYCIN FOR LEVEL >20 FS SCH (14:30)
[2021-02-04] MEDS: Cefepime 1 GM in Sodium Chloride 0.9% 100 ML IVPB SCH (21:40)
[2021-02-05 04:35] LABS: Hemoglobin 9.5 g/dL (14.0-18.0); Mean Corpuscular HGB CONC 32.5 g/dL (32.0-36.0); Mean Corpuscular Hemoglobin 30.5 pg (27.0-31.0); Mean Corpuscular Volume 93.7 fL (78.0-98.0); Mean Platelet Volume 8.8 fL (7.4-10.4); Platelet Count 195 thou/uL (130-400); RBC Distribution Width 13.9 % (11.5-14.5); Red Blood Cell (RBC) Count 3.13 mill/uL (4.70-6.10); White Blood Cell (WBC) Count 15.6 thou/uL (4.8-10.8)
[2021-02-05 04:55] LABS: Albumin 2.7 g/dL (3.4-4.8); Anion Gap 19 mmol/L (10-20); BUN (Urea Nitrogen) 107 mg/dL (8.4-25.7); BUN/Creatinine Ratio 20.74; Calc. Creatinine Clearance 23 mL/min (70-130); Calcium 8.6 mg/dL (7.8-10.44); Carbon Dioxide 27 mmol/L (23-31); Chloride 103 mmol/L (98-107); Glucose 104 mg/dL (83-110); Phosphorus 5.7 mg/dL (2.3-4.7); Potassium 3.8 mmol/L (3.5-5.1); Sodium 145 mmol/L (136-145)
[2021-02-05 05:02] LABS: Vancomycin, Random 18.2 ug/mL (See Comment)
[2021-02-05] MEDS: Furosemide 100 MG/10 ML VIAL SLOW IVP SCH ×3 (05:06→21:12)
[2021-02-05 06:41] LABS: Actual Bicarbonate (HCO3a) 26.7 mEq/L (22-28); Base Excess (BEa) 3.1 mEq/L (-2.0 to +3.0); CO2 Tension 37.1 mmHg (35.0-45.0); Calcium, Ionized (arterial) 1.08 mmol/L (1.12-1.30); Carboxyhemoglobin (COHb) 0.2 gm% (0.0-3.0); Hemoglobin (Hb) 10.2 g/dL (14.0-18.0); O2 Tension (PaO2), arterial 92.5 mmHg (> 70.0); Potassium - ABG Lab 3.82 mmol/L (3.70-5.30); pH, Arterial 7.48 (7.35-7.45)
[2021-02-05 06:42] LABS: ALV-art Gradient 217.625 mmHg (0-20); Puncture Site RRA
[2021-02-05] MEDS ORDERED: Vancomycin HCl 750 MG in Sodium Chloride 0.9% 250 ML 250 ML IVPB SCH (08:00)
[2021-02-05] MEDS: Fentanyl CADD 100 ML IV SCH (09:59)
[2021-02-05] MEDS: Famotidine/PF 20 mg/2ml Vial SLOW IVP SCH (11:28)
[2021-02-05] MEDS: Aspirin Chewable 81 MG TAB PO SCH (11:29)
[2021-02-05] MEDS: Dexmedetomidine 1,000 MCG in Sodium Chloride 0.9% 250 ML 240 ML IVPB SCH (11:29)
[2021-02-05] MEDS ORDERED: Heparin 10,000 UNITS/ 10 ML VIAL ONE (12:21)
[2021-02-05] MEDS ORDERED: Fentanyl BOLUS 250 ML IVPB PRN (13:17)
[2021-02-05] MEDS ORDERED: Morphine 4 MG/ML VIAL SLOW IVP PRN (13:18)
[2021-02-05 13:23] LABS: ALT (SGPT) 68 U/L (8-55); AST (SGOT) 93 U/L (5-34); Albumin 2.6 g/dL (3.4-4.8); Alkaline Phosphatase 147 U/L (40-110); Bilirubin, Direct 5.2 mg/dL (0.1-0.3); Bilirubin, Total 6.8 mg/dL (0.2-1.2); Protein, Total 5.3 g/dL (5.8-8.1)
[2021-02-05] MEDS: Cefepime 0.5 GM, Admixture Fee 1 EACH in Sodium Chloride 0.9% 100 ML IVPB SCH (21:12)
[2021-02-06] MEDS: Dexmedetomidine 1,000 MCG in Sodium Chloride 0.9% 250 ML 240 ML IVPB SCH (03:01)
[2021-02-06] MEDS: Furosemide 100 MG/10 ML VIAL SLOW IVP SCH ×3 (05:39→21:02)
[2021-02-06 05:51] LABS: Hemoglobin 9.5 g/dL (14.0-18.0); Mean Corpuscular HGB CONC 34.6 g/dL (32.0-36.0); Mean Corpuscular Hemoglobin 32.4 pg (27.0-31.0); Mean Corpuscular Volume 93.8 fL (78.0-98.0); Mean Platelet Volume 8.4 fL (7.4-10.4); Platelet Count 218 thou/uL (130-400); RBC Distribution Width 13.9 % (11.5-14.5); Red Blood Cell (RBC) Count 2.91 mill/uL (4.70-6.10); White Blood Cell (WBC) Count 16.8 thou/uL (4.8-10.8)
[2021-02-06 06:09] LABS: Vancomycin, Random 17.6 ug/mL (See Comment)
[2021-02-06 06:17] LABS: Albumin 2.6 g/dL (3.4-4.8); Anion Gap 18 mmol/L (10-20); BUN (Urea Nitrogen) 96 mg/dL (8.4-25.7); Calc. Creatinine Clearance 24 mL/min (70-130); Calcium 8.9 mg/dL (7.8-10.44); Carbon Dioxide 27 mmol/L (23-31); Chloride 101 mmol/L (98-107); Glucose 108 mg/dL (83-110); Phosphorus 6.4 mg/dL (2.3-4.7); Potassium 4.1 mmol/L (3.5-5.1); Sodium 142 mmol/L (136-145)
[2021-02-06 07:21] VITALS: BMI 37.0
[2021-02-06] MEDS ORDERED: Vancomycin HCl 750 MG in Sodium Chloride 0.9% 250 ML 250 ML IVPB SCH (09:00)
[2021-02-06] MEDS: Famotidine/PF 20 mg/2ml Vial SLOW IVP SCH (09:29)
[2021-02-06] MEDS: Aspirin Chewable 81 MG TAB PO SCH (09:29)
[2021-02-06] MEDS ORDERED: Fentanyl CADD 100 ML ONE (15:51)
[2021-02-06] MEDS: Cefepime 0.5 GM, Admixture Fee 1 EACH in Sodium Chloride 0.9% 100 ML IVPB SCH (21:01)
[2021-02-06] MEDS: Lorazepam 2 MG/ML VIAL SLOW IVP PRN (21:09)
[2021-02-07 04:17] LABS: Hemoglobin 9.9 g/dL (14.0-18.0); Mean Corpuscular HGB CONC 33.6 g/dL (32.0-36.0); Mean Corpuscular Hemoglobin 31.3 pg (27.0-31.0); Mean Corpuscular Volume 93.2 fL (78.0-98.0); Mean Platelet Volume 8.1 fL (7.4-10.4); Platelet Count 300 thou/uL (130-400); Red Blood Cell (RBC) Count 3.16 mill/uL (4.70-6.10); White Blood Cell (WBC) Count 19.9 thou/uL (4.8-10.8)
[2021-02-07 04:34] LABS: Albumin 2.8 g/dL (3.4-4.8); Anion Gap 19 mmol/L (10-20); BUN (Urea Nitrogen) 122 mg/dL (8.4-25.7); BUN/Creatinine Ratio 20.54; Calc. Creatinine Clearance 19 mL/min (70-130); Carbon Dioxide 26 mmol/L (23-31); Chloride 102 mmol/L (98-107); Glucose 99 mg/dL (83-110); Phosphorus 7.5 mg/dL (2.3-4.7); Sodium 143 mmol/L (136-145)
[2021-02-07 04:36] LABS: ALT (SGPT) 98 U/L (8-55); AST (SGOT) 137 U/L (5-34); Albumin 2.8 g/dL (3.4-4.8); Alkaline Phosphatase 88 U/L (40-110); Bilirubin, Direct 6.3 mg/dL (0.1-0.3); Bilirubin, Total 8.1 mg/dL (0.2-1.2); Protein, Total 5.7 g/dL (5.8-8.1)
[2021-02-07] MEDS: Furosemide 100 MG/10 ML VIAL SLOW IVP SCH ×3 (06:04→21:30)
[2021-02-07] MEDS: Famotidine/PF 20 mg/2ml Vial SLOW IVP SCH (07:13)
[2021-02-07] MEDS: Aspirin Chewable 81 MG TAB PO SCH (07:13)
[2021-02-07] MEDS ORDERED: Lorazepam 2 MG/ML VIAL SLOW IVP PRN (07:30)
[2021-02-07] MEDS: Sodium Chloride 0.45% 1,000 ML IV SCH (10:31)
[2021-02-07] MEDS ORDERED: Midazolam HCl 2 mg/2 ml Vial ONE ×2 (13:14→15:54)
[2021-02-07] MEDS ORDERED: Fentanyl CADD 100 ML ONE (14:07)
[2021-02-07] MEDS: Fentanyl CADD 100 ML IV SCH (14:11)
[2021-02-07 14:20] VITALS: BP 127/82
[2021-02-07] MEDS: Cefepime 0.5 GM, Admixture Fee 1 EACH in Sodium Chloride 0.9% 100 ML IVPB SCH (22:13)
[2021-02-08 04:09] LABS: Hemoglobin 9.5 g/dL (14.0-18.0); Mean Corpuscular HGB CONC 33.5 g/dL (32.0-36.0); Mean Corpuscular Hemoglobin 31.2 pg (27.0-31.0); Mean Platelet Volume 8.1 fL (7.4-10.4); Platelet Count 340 thou/uL (130-400); RBC Distribution Width 14.2 % (11.5-14.5); Red Blood Cell (RBC) Count 3.06 mill/uL (4.70-6.10); White Blood Cell (WBC) Count 18.9 thou/uL (4.8-10.8)
[2021-02-08 04:27] LABS: Albumin 2.7 g/dL (3.4-4.8); Anion Gap 26 mmol/L (10-20); Calc. Creatinine Clearance 16 mL/min (70-130); Calcium 8.4 mg/dL (7.8-10.44); Carbon Dioxide 21 mmol/L (23-31); Chloride 100 mmol/L (98-107); Glucose 92 mg/dL (83-110); Phosphorus 8.9 mg/dL (2.3-4.7); Potassium 4.2 mmol/L (3.5-5.1); Sodium 143 mmol/L (136-145)
[2021-02-08] MEDS: Sodium Chloride 0.45% 1,000 ML IV SCH ×4 (04:39→17:20)
[2021-02-08 04:40] LABS: BUN (Urea Nitrogen) 131 mg/dL (8.4-25.7); BUN/Creatinine Ratio 18.48
[2021-02-08] MEDS: Furosemide 100 MG/10 ML VIAL SLOW IVP SCH (05:10)
[2021-02-08] MEDS: Aspirin Chewable 81 MG TAB PO SCH (07:05)
[2021-02-08] MEDS: Famotidine/PF 20 mg/2ml Vial SLOW IVP SCH (07:05)
[2021-02-08] MEDS: Morphine 4 MG/ML VIAL SLOW IVP PRN ×4 (08:44→23:28)
[2021-02-09] MEDS: Morphine 4 MG/ML VIAL SLOW IVP PRN ×4 (03:50→15:52)
[2021-02-09 08:15] VITALS: TEMP 99
[2021-02-09] MEDS: Sodium Chloride 0.45% 1,000 ML IV SCH (13:42)
== END 2021-02-09 17:02 | disposition hospice, inpatient (51) | DRG 270 ==
LOC: ERS 21:55 → SDC/OP 01-28 00:13 → CCU 01-28 03:33 → ONC 02-09 09:59
PROVIDERS: ADMIT Thoracic Surgery (Cardiothoracic Vascular Surgery); ATTEND Thoracic Surgery (Cardiothoracic Vascular Surgery)
PROC: 30233K1 Transfusion of Nonautologous Frozen Plasma into Peripheral Vein, Percutaneous Approach (ICD-10-PCS; 2021-01-27)
PROC: 30233N1 Transfusion of Nonautologous Red Blood Cells into Peripheral Vein, Percutaneous Approach (ICD-10-PCS; 2021-01-27)
PROC: 30233R1 Transfusion of Nonautologous Platelets into Peripheral Vein, Percutaneous Approach (ICD-10-PCS; 2021-01-27)
PROC: 30233M1 Transfusion of Nonautologous Plasma Cryoprecipitate into Peripheral Vein, Percutaneous Approach (ICD-10-PCS; 2021-01-27)
PROC: 3E043XZ Introduction of Vasopressor into Central Vein, Percutaneous Approach (ICD-10-PCS; 2021-01-27)
PROC: 5A1955Z Respiratory Ventilation, Greater than 96 Consecutive Hours (ICD-10-PCS; 2021-01-27)
PROC: 0D9670Z Drainage of Stomach with Drainage Device, Via Natural or Artificial Opening (ICD-10-PCS; 2021-01-27)
PROC: [UNRECOGNIZED PROCEDURE] (principal; 2021-01-28)
PROC: [UNRECOGNIZED PROCEDURE] (2021-01-28)
PROC: 041 Lower Arteries, Bypass (ICD-10-PCS; 2021-01-28)
PROC: 0W3G0ZZ Control Bleeding in Peritoneal Cavity, Open Approach (ICD-10-PCS; 2021-01-29)
PROC: 5A2204Z Restoration of Cardiac Rhythm, Single (ICD-10-PCS; 2021-01-29)
PROC: 02HV33Z Insertion of Infusion Device into Superior Vena Cava, Percutaneous Approach (ICD-10-PCS; 2021-01-29)
PROC: B548ZZA Ultrasonography of Superior Vena Cava, Guidance (ICD-10-PCS; 2021-01-29)
PROC: 02H633Z Insertion of Infusion Device into Right Atrium, Percutaneous Approach (ICD-10-PCS; 2021-01-29)
PROC: 5A1D70Z Performance of Urinary Filtration, Intermittent, Less than 6 Hours Per Day (ICD-10-PCS; 2021-02-04)
PROC: 0BJ08ZZ Inspection of Tracheobronchial Tree, Via Natural or Artificial Opening Endoscopic (ICD-10-PCS; 2021-02-09)
DX: T82.310A Breakdown (mechanical) of aortic (bifurcation) graft (replacement), initial encounter (principal); I71.3 Abdominal aortic aneurysm, ruptured; K66.1 Hemoperitoneum; D65 Disseminated intravascular coagulation [defibrination syndrome]; J96.01 Acute respiratory failure with hypoxia; N17.0 Acute kidney failure with tubular necrosis; R57.8 Other shock; I97.618 Postprocedural hemorrhage of a circulatory system organ or structure following other circulatory system procedure; E87.0 Hyperosmolality and hypernatremia; I47.1 Supraventricular tachycardia; D62 Acute posthemorrhagic anemia; E87.2 Acidosis; J98.11 Atelectasis; J90 Pleural effusion, not elsewhere classified; J81.1 Chronic pulmonary edema; Z66 Do not resuscitate; Z51.5 Encounter for palliative care; Z20.822 Contact with and (suspected) exposure to COVID-19; E83.51 Hypocalcemia; Z95.1 Presence of aortocoronary bypass graft; Y83.8 Other surgical procedures as the cause of abnormal reaction of the patient, or of later complication, without mention of misadventure at the time of the procedure; E78.5 Hyperlipidemia, unspecified; F17.210 Nicotine dependence, cigarettes, uncomplicated; E66.9 Obesity, unspecified; I25.10 Atherosclerotic heart disease of native coronary artery without angina pectoris; I12.9 Hypertensive chronic kidney disease with stage 1 through stage 4 chronic kidney disease, or unspecified chronic kidney disease; N18.30 Chronic kidney disease, stage 3 unspecified; E87.8 Other disorders of electrolyte and fluid balance, not elsewhere classified; E83.39 Other disorders of phosphorus metabolism; E87.70 Fluid overload, unspecified; E80.6 Other disorders of bilirubin metabolism; N14.1 Nephropathy induced by other drugs, medicaments and biological substances; Y92.239 Unspecified place in hospital as the place of occurrence of the external cause; T50.8X5A Adverse effect of diagnostic agents, initial encounter; Z95.5 Presence of coronary angioplasty implant and graft; Z68.39 Body mass index [BMI] 39.0-39.9, adult; Z78.1 Physical restraint status; Z88.7 Allergy status to serum and vaccine; Z98.890 Other specified postprocedural states; Z79.82 Long term (current) use of aspirin; Y83.2 Surgical operation with anastomosis, bypass or graft as the cause of abnormal reaction of the patient, or of later complication, without mention of misadventure at the time of the procedure
CPT/HCPCS: 31624; 36415; 36416; 36430; 36600; 71045; 71275; 74018; 74177; 76705; 80048; 80069; 80202; 81001; 82040; 82533; 82550; 82570; 82805; 83605; 83735; 83880; 84100; 84156; 84300; 84540; 85014; 85018; 85025; 85027; 85384; 85610; 85730; 86704; 86706; 86803; 86850; 86900; 86901; 87040; 87070; 87205; 87340; 90935; 93005; 93306; 94002; 94003; 94150; 94640; 96361; 96365; 96366; 96375; A4306; C1751; C1752; G0257; J0171; J0692; J1644; J1940; J2001; J2060; J2150; J2250; J2270; J2704; J2765; J2930; J3010; J3370; J3490; J7050; J7070; J7620; P9012; P9016; P9035; P9045; P9047; P9059; Q9967; S0028

== ENCOUNTER 2021-02-09 17:40 | Inpatient (IN) | payer OTHER ==
[2021-02-09] MEDS ORDERED: Morphine 2 MG/ML VIAL SLOW IVP PRN (18:14)
[2021-02-09] MEDS ORDERED: Scopolamine 1.5 mg/72 hour Patch TOP SCH (18:15)
[2021-02-09] MEDS ORDERED: Ondansetron PF 4 MG/2 ML Vial IVP PRN (18:15)
[2021-02-09 18:36] VITALS: BMI 37.1
[2021-02-09] MEDS: Lorazepam 2 MG/ML VIAL SLOW IVP SCH (20:31)
[2021-02-09] MEDS: Morphine 4 MG/ML VIAL SLOW IVP SCH ×2 (20:31→21:43)
[2021-02-10] MEDS: Morphine 4 MG/ML VIAL SLOW IVP SCH ×13 (00:16→22:20)
[2021-02-10] MEDS: Lorazepam 2 MG/ML VIAL SLOW IVP SCH ×7 (00:17→22:20)
[2021-02-10] MEDS ORDERED: Morphine 4 MG/ML VIAL SLOW IVP SCH (16:00)
[2021-02-11] MEDS: Lorazepam 2 MG/ML VIAL SLOW IVP SCH ×5 (00:15→07:53)
[2021-02-11] MEDS: Morphine 4 MG/ML VIAL SLOW IVP SCH ×5 (00:15→07:51)
[2021-02-11 08:05] VITALS: BP 57/37; TEMP 96.5
== END 2021-02-11 09:45 | disposition hospice, inpatient (51) | DRG 951 ==
LOC: ONC 17:40
PROVIDERS: ADMIT Family Medicine; ATTEND Family Medicine
DX: Z51.5 Encounter for palliative care (principal); I71.3 Abdominal aortic aneurysm, ruptured; R57.8 Other shock; J96.00 Acute respiratory failure, unspecified whether with hypoxia or hypercapnia; N18.6 End stage renal disease; Z66 Do not resuscitate; Z20.822 Contact with and (suspected) exposure to COVID-19; I25.10 Atherosclerotic heart disease of native coronary artery without angina pectoris; Z95.1 Presence of aortocoronary bypass graft; Z79.899 Other long term (current) drug therapy; Z79.82 Long term (current) use of aspirin; Z87.891 Personal history of nicotine dependence; Z88.7 Allergy status to serum and vaccine; E66.01 Morbid (severe) obesity due to excess calories; Z68.37 Body mass index [BMI] 37.0-37.9, adult
CPT/HCPCS: J2060; J2270